=== PATIENT | male | born 1955 | race Caucasian/White ===

== ENCOUNTER → 2017-01-25 | Outpatient (CLI) | payer MEDICARE ==
--- NOTE | 2017-01-25 10:23 | XR ---
EXAMINATION TYPE: XR knee complete LT DATE OF EXAM: 01/25/2017 10:12 AM COMPARISON: NONE HISTORY: Chronic knee pain TECHNIQUE: Four views are submitted. FINDINGS: Narrowing of the knee joint with the greatest involvement involving the medial compartment and patell ofemoral joint. Chondrocalcinosis and hypertrophic changes seen. Chronic appearing deformity involvin g the neck of the fibula. Small amount of fluid in the suprapatellar bursa. Osseous structures are in tact. No acute fracture seen. IMPRESSION: 1. Severe osteoarthritis. Depositional arthropathy also the differential diagnosis.
== END | disposition home or self-care (01) ==
LOC: RADXRMAIN 09:43
PROVIDERS: ATTEND Physician Assistant
DX: M17.12 Unilateral primary osteoarthritis, left knee (principal)

== ENCOUNTER → 2020-07-12 | Outpatient (CLI) | payer MEDICARE ==
[2020-07-12 11:16] LABS: HGB 18.4 gm/dL (13.0-17.5); MCH 29.9 pg (25.0-35.0); MCHC 32.1 g/dL (31.0-37.0); MCV 93.1 fL (80.0-100.0); Mean Platelet Volume 7.8; Platelet Count 172 k/uL (150-450); RBC 6.16 m/uL (4.30-5.90); RDW 13.7 % (11.5-15.5); WBC 7.1 k/uL (3.8-10.6)
[2020-07-12 11:26] LABS: HCT 57.3 % (39.0-53.0)
== END | disposition home or self-care (01) ==
LOC: LABPAT 09:52
PROVIDERS: ATTEND Surgery Plastic and Reconstructive Surgery
DX: Z01.818 Encounter for other preprocedural examination (principal)
CPT/HCPCS: 36415; 85027

== ENCOUNTER → 2020-07-16 | Day surgery (SDC) | payer MEDICARE ==
[2020-07-09 09:29] VITALS: BMI 39.2
--- NOTE | 2020-07-15 20:55 | P.GSHP ---
History of Present Illness H&P Date: 07/16/20 CHIEF COMPLAINT: Ventral hernia HISTORY OF PRESENT ILLNESS: The patient is a 65-year-old male who presents with a history of swelling and pain along the abdomen from a hernia. Now he presents for surgical intervention. PAST MEDICAL HISTORY: Please see list. PAST SURGICAL HISTORY: Please see list. MEDICATIONS: Please see list. ALLERGIES: Please see list. SOCIAL HISTORY: No illicit drug use FAMILY HISTORY: No reports of Crohn disease or ulcerative colitis. REVIEW OF ORGAN SYSTEMS: CONSTITUTIONAL: No reports of fevers or chills. No reports of weight loss despite prior attempts. GI: Denies any blood in stools or constipation. PHYSICAL EXAM: VITAL SIGNS: Stable GENERAL: Well-developed pleasant male in no acute distress. HEENT: No scleral icterus. Extraocular movements grossly intact. Moist buccal mucosa. NECK: Supple without lymphadenopathy. CHEST: Unlabored respirations. Equal bilateral excursions. CARDIOVASCULAR: Regular rate and rhythm. Distal 2+ pulses. ABDOMEN: Soft, nondistended. Palpable defect of the abdomen. No peritoneal signs. MUSCULOSKELETAL: No clubbing, cyanosis, or edema. ASSESSMENT: 1. Ventral hernia PLAN: 1. Recommend proceeding with robotic ventral hernia repair with mesh. 2. Benefits and risks of surgical intervention was discussed including possibility of open technique. 3. DVT prophylaxis. 4. Antibiotic prophylaxis. Past Medical History Past Medical History: GERD/Reflux, Hearing Disorder / Deafness, Hypertension, Thyroid Disorder Additional Past Medical History / Comment(s): MILD HEARING LOSS. PAIN LOWER BACK, KNEES, NECK SHOULDERS. Nerve damage. History of Any Multi-Drug Resistant Organisms: None Reported Past Surgical History: Back Surgery, Orthopedic Surgery Additional Past Surgical History / Comment(s): BACK SURGERY X2 - FUSIONS, CERVICAL FUSIONS X2, LEFT SHOULDER SURGERY X1, RIGHT SHOULDER SURGERY X2, LEFT KNEE ARTHROSCOPY. Past Anesthesia/Blood Transfusion Reactions: Postoperative Nausea & Vomiting (PONV) Smoking Status: Current some day smoker - Past Family History Mother Family Medical History: Cancer Sister(s) Family Medical History: Cancer Medications and Allergies Home Medications Medication Instructions Recorded Confirmed Type Levothyroxine Sodium 200 mcg PO QAM 06/21/20 07/09/20 History Lisinopril [Zestril] 10 mg PO QAM #0 06/21/20 07/09/20 History Metoprolol Succinate (ER) [Toprol 25 mg PO 1700 #0 08/24/20 09/11/20 History Xl] Omeprazole 20 mg PO QAM 07/09/20 07/09/20 History Allergies Allergy/AdvReac Type Severity Reaction Status Date / Time No Known Allergies Allergy Verified 07/09/20 09:12
[~2020-07-16] MED LIST: ACETAMINOPHEN TAB 500 MG TAB PO STA; DEXAMETHASONE SOD PHOSPHATE 10 MG/ML 1 ML VIAL IV ONE; GABAPENTIN 300 MG CAP PO ONE; GLYCOPYRROLATE 0.2 MG/ML 2 ML VIAL ONE; HEPARIN SODIUM,PORCINE 5,000 UNIT/ML 1 ML VIAL ONE; HEPARIN SODIUM,PORCINE 5,000 UNIT/ML 1 ML VIAL SQ ONE; HYDROmorphone (PF) 1 MG/ML ONE; HYDROmorphone 0.5 MG/0.5 ML SYRINGE IVP PRN; KETOROLAC 15 MG/ML 1 ML VIAL ONE; LACTATED RINGERS 1,000 ML IV ONE; LACTATED RINGERS 1,000 ML IV SCH; LIDOCAINE 1% INJ 10MG/ML (20 ML MDV) ONE; LIDOCAINE 1%-EPI 1:100,000 20 ML VIAL SQ ONE; MIDAZOLAM 2 MG/2 ML VIAL IV ONE; MIDAZOLAM 2 MG/2 ML VIAL IV PRN; MIDAZOLAM 2 MG/2 ML VIAL ONE; NEOSTIGMINE 1 MG/ML 10 ML VIAL ONE; ONDANSETRON 4 MG/2 ML VIAL IVP ONE; PROPOFOL 10 MG/ML 20 ML VIAL IV ONE; ROCURONIUM BROMIDE 10 MG/ML 5 ML VIAL IV ONE; ROPIVACAINE 5 MG/ML 30 ML VIAL ONE; SCOPOLAMINE 1.5MG/72HR PATCH TRANSDERM ONE; SUCCINYLCHOLINE CHLORIDE 100 MG/5 ML SYR IV ONE; TAMSULOSIN 0.4 MG CAP.ER.24H PO ONE; ceFAZolin 3 GM in SODIUM CHLORIDE 0.9% 100 ML IVPB ONE; fentaNYL (PF) 50 MCG/ML 2 ML AMP ONE
[2020-07-16 12:01] LABS: HGB 17.3 gm/dL (13.0-17.5); MCH 29.2 pg (25.0-35.0); MCV 91.2 fL (80.0-100.0); Mean Platelet Volume 7.5; Platelet Count 166 k/uL (150-450); RBC 5.93 m/uL (4.30-5.90); RDW 13.6 % (11.5-15.5); WBC 7.5 k/uL (3.8-10.6)
--- NOTE | 2020-07-16 14:07 | P.ANPRN ---
Procedure Note - Anesthesia - Nerve Block Performed Bilateral Rectus Abdominis Time Out Performed: Yes (1339) Date of Procedure: 07/16/20 Procedure Start Time: 13:40 Procedure Stop Time: 13:50 Location of Patient: PreOp Indication: Acute Post-Operative Pain, Analgesia, Requested by Surgeon Specifically requested for management of pain by DrManisha: Shawanda Palmer Sedation Type: Sedate with meaningful contact maintained Preparation: Sterile Prep Position: Supine Needle Types: Pajunk Needle Gauge: 20 Ultrasound used to visualize needle placement: Yes Ultrasound used to observe medication spread: Yes Injectate: 0.5% Ropivacaine (see comment for volume) (15 mL each side) Blood Aspirated: No Pain Paresthesia on Injection Noted: No Resistance on Injection: Normal Image Stored and Saved: Yes Events: Uneventful and Well Tolerated
[2020-07-16 16:23] VITALS: TEMP 97.4
--- NOTE | 2020-07-16 16:38 | P.OP ---
Date of Procedure: 07/16/20 Description of Procedure: SURGEON: BORIS PALMER MD 1. DIA KALYANI PREOPERATIVE DIAGNOSES: 1. Initial incarcerated umbilical hernia 2. Hypertensive heart disease 3. Morbid obesity due to excess calories, BMI 38.6 POSTOPERATIVE DIAGNOSES: 1. Initial incarcerated umbilical hernia, 4-cm 2. Hypertensive heart disease 3. Morbid obesity due to excess calories, BMI 38.6 OPERATION: 1. Robotic-assisted da Amado Xi laparoscopic repair of initial incarcerated umbilical hernia 4-cm with mesh, ventralight ST mesh 11.4 cm Anesthesia: GETA, regional, local Estimated Blood Loss (ml): 5 Pathology: None COMPLICATIONS: None. Operative Findings: 1. Umbilical hernia defect 4 cm 2. Fascia repaired using #1 V-lock suture, nonabsorbable INDICATIONS: The patient is a 65-year-old male who presents with a personal history of abdominal wall hernia. Surgical intervention with laparoscopic versus robotic and open techniques were reviewed. Placement of mesh was also reviewed. Benefits and risks were thoroughly described. Informed consent was obtained. DESCRIPTION OF PROCEDURE: The patient was brought into the operating room and laid in supine position. After general induction, the abdomen had been prepped and draped in standard sterile fashion. Ioban draping was also placed. Prior to incision, a timeout protocol was confirmed with surgical team regarding the patient's name including procedures to be performed. The robot was primed prior to the procedure. A field block using local anesthetic was placed along hernia site including the proposed port sites. Initial incision was made with an #11 blade along the left upper quadrant. A 0 degree 5 mm laparoscopic trocar entry was performed and insufflated. Three 8 mm ports were placed along the left lateral abdominal wall under direct localization after exchanging the 5-mm for an 8 mm port. Placements of the ports were 15 cm from the target anatomy and 10 cm apart. An accessory 12 mm port was placed at the left upper quadrant for exchange of mesh including sutures. The [employer] robot was previously primed, prepped and draped then docked from the right side of the patient onto the left side of the patient. I then sat at the robot [employer] console where working arms of the robot including Bovie cautery connected to robotic scissors, needle sprinkling truck driver, and graspers placed by the orthopedic assistant. Incarcerated omental contents were found along the umbilicus. The defect was reduced of 4-cm. The incarcerated contents were reduced as the peritoneal fat was cleaned from the abdominal wall. Next, hemostasis was checked with cautery. The hernia defects were oversewn using #1 nonabsorbable V-lock suture fascial imbrication x 2. Next, ventralight ST mesh 11.4 cm was placed with the rough side towards the abdominal wall as to cover the umbilical defect. 2-0 VLOC 9 inch absorbable sutures were used to fixate the mesh. A final endoscopic imaging was obtained. All instruments and pneumoperitoneum were evacuated from the abdominal cavity. The [employer] Xi robot was undocked from the patient. I re-scrubbed into the case for closure of incisions. The fascia of the 12-mm port was probed and less than 8-mm in size. The incisions were reapproximated using 4-0 Monocryl in an interrupted subcuticular fashion. Liquid glue was applied to the skin after cleansing the skin with normal saline and dilute hydrogen peroxide. An abdominal binder was placed. An umbilical dressing was placed prior. At the end of the procedure, needle, sponge, and instrument count had been verified correct by senior quality technician. The patient was taken to the postanesthesia care unit in stable condition. Plan - Discharge Summary Discharge Rx Participant: Yes New Discharge Prescriptions: New Naproxen [Naprosyn] 250 mg PO TID PRN #30 tab PRN Reason: Pain HYDROcodone/APAP 5-325MG [[place] 5-325] 1 tab PO Q6HR PRN 3 Days #10 tab PRN Reason: Pain Acetaminophen Tab [Tylenol Tab] 1,000 mg PO Q6HR PRN #30 tablet PRN Reason: Pain Continue Levothyroxine Sodium 200 mcg PO QAM Lisinopril [Zestril] 10 mg PO QAM #0 Metoprolol Succinate (ER) [Toprol XL] 25 mg PO 1700 #0 Omeprazole 20 mg PO QAM Discharge Medication List Levothyroxine Sodium 200 mcg PO QAM 06/21/20 [History] Lisinopril [Zestril] 10 mg PO QAM #0 06/21/20 [History] Metoprolol Succinate (ER) [Toprol XL] 25 mg PO 1700 #0 06/21/20 [History] Omeprazole 20 mg PO QAM 07/09/20 [History] Acetaminophen Tab [Tylenol Tab] 1,000 mg PO Q6HR PRN #30 tablet 07/16/20 [Rx] HYDROcodone/APAP 5-325MG [[place] 5-325] 1 tab PO Q6HR PRN 3 Days #10 tab 07/16/20 [Rx] Naproxen [Naprosyn] 250 mg PO TID PRN #30 tab 07/16/20 [Rx] Follow up Appointment(s)/Referral(s): Boris Palmer MD [STAFF PHYSICIAN] - 07/22/20 Patient Instructions/Handouts: *Surgery [facility] - (Anesthesia) Discharge Instructions Outpatient Surgery, Ventral Hernia Repair (DC), Ventral Hernia Repair (GEN), Abdominal Binder (DC), Laparoscopic Herniorrhaphy (DC) Activity/Diet/Wound Care/Special Instructions: DO NOT REMOVE BELLY BUTTON DRESSING. Wear abdominal binder at all times except showering. Using antibacterial soap. No lifting over 4 pounds 4 weeks, August 15February shower. No bathtub soaks for 2 weeks, July 30. DO NOT DRIVE WHILE ON NARCOTICS. Discharge Disposition: HOME SELF-CARE
[2020-07-16 17:25] VITALS: BP 105/66; PULSE 95; RESP 18
== END | disposition home or self-care (01) ==
LOC: OR 11:18
PROVIDERS: ATTEND Surgery Plastic and Reconstructive Surgery
DX: K42.0 Umbilical hernia with obstruction, without gangrene (principal); I11.9 Hypertensive heart disease without heart failure; E66.01 Morbid (severe) obesity due to excess calories; H91.90 Unspecified hearing loss, unspecified ear; K21.9 Gastro-esophageal reflux disease without esophagitis; E07.9 Disorder of thyroid, unspecified; F17.200 Nicotine dependence, unspecified, uncomplicated; Z79.890 Hormone replacement therapy; Z79.899 Other long term (current) drug therapy; Z68.38 Body mass index [BMI] 38.0-38.9, adult; Z98.1 Arthrodesis status; Z98.890 Other specified postprocedural states; Z80.9 Family history of malignant neoplasm, unspecified
CPT/HCPCS: 64488; 85027; 49653; C1781; J2250; J1644; J1100; J2710; J0690; J2405; J2001; J3010; J1170; J2795; J1885; J0330; J2704